=== PATIENT | female | born 1990 ===

== ENCOUNTER 2018-09-07 07:29 | Day surgery (SDC) | payer OTHER ==
[~2018-09-07] VITALS: Ht 152.4 cm; Wt 64.4 kg
[2018-09-07] MEDS ORDERED: CODE1TAB37 PO (11:09)
[2018-09-07] MEDS ORDERED: NAPROXEN500 M1 PO (11:10)
== END 2018-09-07 13:00 | disposition home or self-care (01) ==
LOC: O/R 07:29 → SURH 07:29 → CIR.AMB 07:29 → EDSTATUS 10:07 → SURH 10:08 → EDSTATUS 10:15 → CIR.AMB 13:00 → O/R 13:28 → OB/GYN 13:28 → O/R 13:31 → OB/GYN 13:35
DX: N83.291 Other ovarian cyst, right side (principal); N83.511 Torsion of right ovary and ovarian pedicle

== ENCOUNTER 2022-08-10 12:15 | Inpatient (IN) | payer OTHER ==
[~2022-08-10] VITALS: Ht 154.9 cm; Wt 72.6 kg
[~2022-08-10 12:15] MED LIST: CODE1TAB37 PO; NAPROXEN500 M1 PO
[2022-08-15] MEDS ORDERED: COLACE100 MG PO (14:13)
[2022-08-15] MEDS ORDERED: IBU800 MG PO (14:13)
== END 2022-08-15 14:23 | disposition home or self-care (01) | DRG 743 ==
LOC: OB/GYN 08-12 06:06 → O/R 08-12 06:06 → OB/GYN 08-12 10:30
PROVIDERS: ADMIT Obstetrics & Gynecology; ATTEND Obstetrics & Gynecology
PROC: 0UT00ZZ Resection of Right Ovary, Open Approach (ICD-10-PCS; 2022-08-12)
PROC: 3E1M38Z Irrigation of Peritoneal Cavity using Irrigating Substance, Percutaneous Approach (ICD-10-PCS; 2022-08-12)
PROC: 0UT70ZZ Resection of Bilateral Fallopian Tubes, Open Approach (ICD-10-PCS; principal; 2022-08-12 10:30)
DX: D27.0 Benign neoplasm of right ovary (principal); Z20.822 Contact with and (suspected) exposure to COVID-19